=== PATIENT | female | born 1965 | race African-American/Black ===

== ENCOUNTER 2016-02-22 13:45 | Emergency (ER) | payer OTHER ==
[~2016-02-22] VITALS: Ht 170.2 cm; Wt 128.8 kg
[~2016-02-22 13:45] MED LIST: FLUT1DIS3 INH; FURO40TA4 PO; LACT10SO35 PEG; LEVE250T4 PO; LEVO750T31 PO; ONDA4TAB12 SL; OXYC5TAB PO; RIFA550T PO; SPIR100T2 PO; URSO250T3 PO
[2016-02-22] MEDS ORDERED: IV NORMAL SALINE 1000ML BAG 1,000 ML IV SCH (14:04)
[2016-02-22 14:14] LABS: BILIRUBIN,URINE MODERATE (NEG); GLUCOSE,URINE NEGATIVE (NEG); NITRITE,URINE POSITIVE (NEG)
[2016-02-22] MEDS ORDERED: FENTANYL PF 100 MCG/2 ML VIAL. IV PRN (14:15)
[2016-02-22] MEDS ORDERED: KETOROLAC TROMETHAMINE 30 MG/ML SYRINGE. IV ONE (14:15)
[2016-02-22] MEDS ORDERED: ONDANSETRON PF 4 MG/2 ML VIAL. IV ONE (14:15)
[2016-02-22 14:32] LABS: BASO % 0 % (0-3); EOS % 1 % (0-3); HEMATOCRIT 36.9 % (36.0-47.0); HEMOGLOBIN 12.4 g/dL (12.0-15.5); LYMPH # 0.2 x10^3/uL (1.0-4.8); LYMPH % 4 % (24-48); MEAN CORPUSCULAR HEMOGLOBIN 35 pg (25-35); MEAN CORPUSCULAR HGB CONC 34 g/dL (31-37); MEAN CORPUSCULAR VOLUME 106 fL (79-100); MONO % 6 % (0-9); NEUT % 90 % (31-73); PLATELET COUNT 42 x10^3/uL (140-400); RED BLOOD COUNT 3.49 x10^6/uL (3.50-5.40); RED CELL DISTRIBUTION WIDTH 18.5 % (11.5-14.5); WHITE BLOOD COUNT 4.7 x10^3/uL (4.0-11.0)
[2016-02-22 14:34] LABS: CALCIUM 8.2 mg/dL (8.5-10.1); CREATININE 0.8 mg/dL (0.6-1.0); GFR 91.1; POTASSIUM 4.1 mmol/L (3.5-5.1)
[2016-02-22 14:40] LABS: ALBUMIN 2.2 g/dL (3.4-5.0); DIRECT BILIRUBIN 1.1 mg/dL (0.0-0.2); TOTAL BILIRUBIN 4.4 mg/dL (0.2-1.0); TOTAL PROTEIN 6.4 g/dL (6.4-8.2)
[2016-02-22 14:46] LABS: BACTERIA,URINE 0 /HPF (0-FEW); PROTEIN,URINE NEGATIVE (NEG-TRACE); SQUAMOUS EPITHELIAL CELL,UR MOD /LPF; TRICHOMONAS,URINE PRESENT
[2016-02-22] MEDS ORDERED: IOHEXOL 300 MG/ML 100ML VIAL. IV ONE (16:00)
[2016-02-22 16:12] LABS: ANISOCYTOSIS SLIGHT; PLT ESTIMATE DECREASED (ADEQUATE); TARGET CELLS OCC; TEAR DROP CELLS FEW
[2016-02-22] MEDS ORDERED: CONTRAST GIVEN MC PRN (16:15)
--- NOTE | 2016-02-22 16:38 | RAD ---
Indication: Nausea and vomiting. Diarrhea. Epigastric pain. Technique: Axial images and coronal and sagittal reformatted images are provided. 75 mL of intravenous Omnipaque 300 was administered without complication. Comparison is from December 11, 2015. One or more of the following individualized dose reduction techniques were utilized for this examination: 1. Automated exposure control 2. Adjustment of the mA and/or kV according to patient size 3. Use of iterative reconstruction technique Findings: There is minimal atelectasis in the right lung base. There is no pleural effusion. The heart is not enlarged. Liver surface nodularity and coarsened appearance compatible with cirrhosis is redemonstrated. Probable cyst in the liver dome is again noted. Gallbladder is now absent. Pancreas and adrenals are unremarkable. Spleen is mildly enlarged. Aorta is normal caliber. There is a circumaortic left renal vein which is a normal vascular variant. There is minimal atheromatous disease in the distal aorta and in the common iliac arteries. The kidneys are symmetrically perfused. There is no small bowel obstruction or mural thickening. There is mural thickening of the transverse colon and proximal colon with stranding in adjacent ascites. Normal appendix is noted. Mesenteric stranding is again noted. There is no abscess or free air. Subcutaneous edema is noted. Ascites extends down into the pelvis. Bladder is decompressed. Prostate is not enlarged. Calcified phleboliths are noted. There are degenerative changes in the spine. Impression: 1. Mural thickening in the ascending and transverse colon with adjacent stranding and ascites compatible with colitis. No abscess or free air. 2. Findings of cirrhosis.
[2016-02-22 17:41] LABS: BILIRUBIN,URINE MODERATE (NEG); GLUCOSE,URINE NEGATIVE (NEG); NITRITE,URINE POSITIVE (NEG); PROTEIN,URINE 30 mg/dL (NEG-TRACE)
[2016-02-22 18:11] LABS: BACTERIA,URINE 0 /HPF (0-FEW); SQUAMOUS EPITHELIAL CELL,UR FEW /LPF; TRICHOMONAS,URINE PRESENT; WBC,URINE 0 /HPF (0-4)
[2016-02-22] MEDS ORDERED: METRONIDAZOLE 500 MG TABLET. PO ONE (18:30)
--- NOTE | 2016-02-22 19:16 | PHYS DOC ---
Past Medical History Past Medical History: CHF, Hepatitis, Seizure Additional Past Medical Histor: HEP C, NASAL BLEED Past Surgical History: Cholecystectomy, Hysterectomy Alcohol Use: None Drug Use: None Adult General Chief Complaint Chief Complaint: ABDOMINAL PAIN HPI HPI Patient is a 50 year old female who presents with n/v, diarrhea, and abd pain starting 2 hours after eating a slice of pizza from a gas station yesterday. She notes crampy, diffuse abdominal pain, but pain is worst in right upper quadrant. She denies bloody or bilious emesis, and denies bloody diarrhea. She denies recent travel or antibiotics. She denies fever or chills, dysuria, hematuria, vaginal discharge, chest pain, cough, rash. Review of Systems Review of Systems Constitutional: Denies fever or chills [] Eyes: Denies change in visual acuity, redness, or eye pain [] HENT: Denies nasal congestion or sore throat [] Respiratory: Denies cough or shortness of breath [] Cardiovascular: No additional information not addressed in HPI [] GI: Denies bloody stools or bloody emesis [] : Denies dysuria or hematuria [] Musculoskeletal: Denies back pain or joint pain [] Integument: Denies rash or skin lesions [] Neurologic: Denies headache, focal weakness or sensory changes [] Endocrine: Denies polyuria or polydipsia [] Current Medications Current Medications Current Medications Medications (Trade) Dose Ordered Sig/[facility] Start Time Stop Time Status Last Admin Dose Admin Fentanyl Citrate 50 mcg 50 mcg PRN Q15MIN PRN 02/22/16 14:15 02/22/16 19:54 DC 02/22/16 14:20 50 MCG Info (Do NOT chart on this entry -- for MONITORING) 1 each PRN DAILY PRN 02/22/16 16:15 02/22/16 19:54 DC Iohexol (Omnipaque 300 Mg/ml) 75 ml 1X ONCE 02/22/16 16:00 02/22/16 16:01 DC 02/22/16 16:22 75 ML Ketorolac Tromethamine (Toradol) 15 mg 1X ONCE 02/22/16 14:15 02/22/16 14:16 DC 02/22/16 14:21 15 MG Metronidazole (Flagyl) 2,000 mg 1X ONCE 1/1/17 18:30 02/22/16 18:34 DC 02/22/16 18:49 2,000 MG Ondansetron HCl (Zofran) 4 mg 1X ONCE 02/22/16 14:15 02/22/16 14:16 DC 02/22/16 14:20 4 MG Sodium Chloride (Iv Sodium Chloride 0.9% 1000ml Bag) 1,000 ml @ 1,000 mls/hr Q1H 02/22/16 14:04 02/22/16 15:03 DC 02/22/16 14:20 1,000 MLS/HR Allergies Allergies Allergies Coded Allergies Type Severity Reaction Last Updated Verified ceftriaxone Allergy Intermediate 12/20/14 Yes erythromycin base Allergy Intermediate 12/20/14 Yes Physical Exam Physical Exam Constitutional: Well developed, well nourished, no acute distress, non-toxic appearance. [] HENT: Normocephalic, atraumatic, bilateral external ears normal, oropharynx moist, nose normal. [] Eyes: PERRLA, EOMI. [] Neck: Normal range of motion, supple. [] Cardiovascular:Heart rate regular rhythm [] Lungs & Thorax: Bilateral breath sounds clear to auscultation [] Abdomen: Bowel sounds normal, soft, mild diffuse tenderness, no guarding or rebound, no pulsatile masses. [] Genitourinary: Refused by patient Skin: Warm, dry, no erythema, no rash. [] Back: No tenderness, no CVA tenderness. [] Extremities: No tenderness, ROM intact, no edema. [] Neurologic: Alert and oriented X 3, normal motor function, normal sensory function, no focal deficits noted. [] Psychologic: Affect normal, judgement normal, mood normal. [] Current Patient Data Vital Signs Vital Signs Date Time Temp Pulse Resp B/P Pulse Ox O2 Delivery O2 Flow Rate FiO2 02/22/16 19:45 85 21 137/82 97 Room Air 02/22/16 14:00 98.6 98.6 Lab Values Laboratory Tests Test 02/22/16 13:55 02/22/16 14:15 02/22/16 17:30 Urine Collection Type Unknown Unknown Urine Color Sharon Sharon Urine Clarity Clear Clear Urine pH 6.0 6.0 Urine Specific [place] >=1.030 >=1.030 Urine Protein Negativemg/dL (NEG-TRACE) 30mg/dL (NEG-TRACE) Urine Glucose (UA) Negativemg/dL (NEG) Negativemg/dL (NEG) Urine Ketones (Stick) 15mg/dL (NEG) Tracemg/dL (NEG) Urine Blood Moderate (NEG) Moderate (NEG) Urine Nitrite Positive (NEG) Positive (NEG) Urine Bilirubin Moderate (NEG) Moderate (NEG) Urine Urobilinogen Dipstick 1.0mg/dL (0.2 mg/dL) 1.0mg/dL (0.2 mg/dL) Urine Leukocyte Esterase Small (NEG) Small (NEG) Urine RBC 11-20/HPF (0-2) 6-10/HPF (0-2) Urine WBC 1-4/HPF (0-4) 0/HPF (0-4) Urine Squamous Epithelial Cells Mod/LPF Few/LPF Urine Bacteria 0/HPF (0-FEW) 0/HPF (0-FEW) Urine Mucus Marked/LPF Slight/LPF Urine Trichomonas Present Present White Blood Count 4.7x10^3/uL (4.0-11.0) Red Blood Count 3.49x10^6/uL (3.50-5.40) L Hemoglobin 12.4g/dL (12.0-15.5) Hematocrit 36.9% (36.0-47.0) Mean Corpuscular Volume 106fL (79-100) H Mean Corpuscular Hemoglobin 35pg (25-35) Mean Corpuscular Hemoglobin Concent 34g/dL (31-37) Red Cell Distribution Width 18.5% (11.5-14.5) H Platelet Count 42x10^3/uL (140-400) L Neutrophils (%) (Auto) 90% (31-73) H Lymphocytes (%) (Auto) 4% (24-48) L Monocytes (%) (Auto) 6% (0-9) Eosinophils (%) (Auto) 1% (0-3) Basophils (%) (Auto) 0% (0-3) Neutrophils # (Auto) 4.2x10^3uL (1.8-7.7) Lymphocytes # (Auto) 0.2x10^3/uL (1.0-4.8) L Monocytes # (Auto) 0.3x10^3/uL (0.0-1.1) Eosinophils # (Auto) 0.0x10^3/uL (0.0-0.7) Basophils # (Auto) 0.0x10^3/uL (0.0-0.2) Platelet Estimate Decreased (ADEQUATE) Anisocytosis Slight Macrocytosis Mod Target Cells Occ Tear Drop Cells Few Sodium Level 142mmol/L (136-145) Potassium Level 4.1mmol/L (3.5-5.1) Chloride Level 110mmol/L (98-107) H Carbon Dioxide Level 23mmol/L (21-32) Anion Gap 9 (6-14) Blood Urea Nitrogen 18mg/dL (7-20) Creatinine 0.8mg/dL (0.6-1.0) Estimated GFR (Cockcroft-Gault) 91.1 Glucose Level 169mg/dL (70-99) H Calcium Level 8.2mg/dL (8.5-10.1) L Total Bilirubin 4.4mg/dL (0.2-1.0) H Direct Bilirubin 1.1mg/dL (0.0-0.2) H Aspartate Amino Transferase (AST) 46U/L (15-37) H Alanine Aminotransferase (ALT) 29U/L (14-59) Alkaline Phosphatase 118U/L (46-116) H Total Protein 6.4g/dL (6.4-8.2) Albumin 2.2g/dL (3.4-5.0) L Lipase 105U/L (73-393) Urine Hyaline Casts Few/HPF Laboratory Tests 02/22/16 14:15 Laboratory Tests 02/22/16 14:15 Radiology/Procedures Radiology/Procedures CT abdomen and pelvis with IV contrast Impression: 1. Mural thickening in the ascending and transverse colon with adjacent stranding and ascites compatible with colitis. No abscess or free air. 2. Findings of cirrhosis. DICTATED and SIGNED BY: FRANCISCO TRENT MD DATE: 02/22/16 1630 Course & Med Decision Making Course & Med Decision Making Pertinent Labs and Imaging studies reviewed. (See chart for details) She has hyperbilirubinemia, but labs are otherwise largely unremarkable. Her urine has Trichomonas. Imaging as above shows colitis. Her symptoms largely improved. Discussed Trichomonas findings, and she is adamant she has not had sex in 9 years, nor has she shared any or used any sex toys. She adamantly denied risk of STI infection. Thus, urine was tested a second time and continues to be positive for Trichomonas. Discussed case with Chelsey Roberto, recommending metronidazole gel and f/u for resolution testing. Discussed with here that she should be treated with metronidazole gel as she has metronidazole allergy. She states she had itching and swelling associated with taking metronidazole in combination with erythromycin and ceftriaxone. She does not actually know which of these medications caused her allergy. She does not want to try metronidazole gel. She would like to try metronidazole oral dose while in the emergency department. I discussed risks of anaphylaxis and she would like to proceed with trial. She was given metronidazole by mouth and she tolerated this with no symptoms of adverse reaction. Metronidazole was then removed from her allergy profile. She was discharged in stable condition and plans to follow-up with her primary care doctor. She was tolerating oral intake. Return precautions given. She understands and agrees with plan. Dragon Disclaimer Dragon Disclaimer This electronic medical record was generated, in whole or in part, using a voice recognition dictation system. Departure Departure Impression: Primary Impression: Nausea vomiting and diarrhea Additional Impression: Trichomonas vaginitis Disposition: 01 HOME, SELF-CARE Condition: STABLE Referrals: NO PCP (PCP) Patient Instructions: Trichomoniasis-Brief Additional Instructions: Follow-up with your primary care doctor. Return for any concerns. Problem Qualifiers Rosalie BRADEN MD Feb 22, 2016 19:16
[2016-02-22 19:45] VITALS: BP 137/82
== END 2016-02-22 19:48 | disposition home or self-care (01) ==
LOC: ER 13:45
DX: R11.2 Nausea with vomiting, unspecified (principal); R19.7 Diarrhea, unspecified; R10.13 Epigastric pain; A59.01 Trichomonal vulvovaginitis; I50.9 Heart failure, unspecified; Z90.49 Acquired absence of other specified parts of digestive tract; Z90.710 Acquired absence of both cervix and uterus; Z88.1 Allergy status to other antibiotic agents
CPT/HCPCS: 36415; 74177; 80048; 80076; 81001; 83690; 85007; 85027; 87086; 96361; 96374; 96375; 99285; J1885; J2405; J3010; J7030; Q9967

== ENCOUNTER 2016-04-28 16:26 | Emergency (ER) | payer OTHER ==
[~2016-04-28] VITALS: Ht 170.2 cm; Wt 127.0 kg
[~2016-04-28 16:26] MED LIST changes: +HYDR115S2 PO
[2016-04-28 17:58] VITALS: BP 125/80
[2016-04-28] MEDS ORDERED: AMOX500C PO (18:20)
--- NOTE | 2016-04-28 18:20 | PHYS DOC ---
Past Medical History Past Medical History: CHF, Hepatitis, Seizure Additional Past Medical Histor: HEP C, CIRRHOSIS Past Surgical History: Cholecystectomy, Hysterectomy Alcohol Use: None Drug Use: None Adult General Chief Complaint Chief Complaint: SORE THROAT HPI HPI Patient is a 50 year old female presents emergency department that she's had a sore throat for the last month. She states that she is having pain on the left side of her throat area she has tried cough drops throat lozenges without relief. Shunt states that she has not had any fevers. She states the last time she had that she did grow back a bacterial infection. Review of Systems Review of Systems Constitutional: Denies fever or chills [] Eyes: Denies change in visual acuity, redness, or eye pain [] HENT: Denies nasal congestion C/o sore throat [] Respiratory: Denies cough or shortness of breath [] Cardiovascular: No additional information not addressed in HPI [] GI: Denies abdominal pain, nausea, vomiting, bloody stools or diarrhea [] : Denies dysuria or hematuria [] Musculoskeletal: Denies back pain or joint pain [] Integument: Denies rash or skin lesions [] Neurologic: Denies headache, focal weakness or sensory changes [] Allergies Allergies Allergies Coded Allergies Type Severity Reaction Last Updated Verified ceftriaxone Allergy Intermediate 12/20/14 Yes erythromycin base Allergy Intermediate 12/20/14 Yes Physical Exam Physical Exam Constitutional: Well developed, well nourished, no acute distress, non-toxic appearance. [] HENT: Normocephalic, atraumatic, bilateral external ears normal, oropharynx moist, no oral exudates, nose normal. Bilateral tympanic membranes appear to be normal. Throat with erythematous with gait noted. Patient with enlarged lymph nodes on the left. Eyes: PERRLA, EOMI, conjunctiva normal, no discharge. [] Neck: Normal range of motion, no tenderness, supple, no stridor. [] Cardiovascular:Heart rate regular rhythm, no murmur [] Lungs & Thorax: Bilateral breath sounds clear to auscultation [] Skin: Warm, dry, no erythema, no rash. [] Back: No tenderness Extremities: No tenderness, no cyanosis, no clubbing, ROM intact, no edema. [] Neurologic: Alert and oriented X 3, normal motor function, normal sensory function, no focal deficits noted. [] Psychologic: Affect normal, judgement normal, mood normal. [] EKG EKG [] Radiology/Procedures Radiology/Procedures [] Course & Med Decision Making Course & Med Decision Making Pertinent Labs and Imaging studies reviewed. (See chart for details) Rapid strep was negative. Patient will be encouraged to continue to use warm saltwater gargles. We'll place patient on amoxicillin 1 tablet twice day for the next 10 days. Signs and symptoms to return back to the emergency department as been provided. Patient agrees with discharge instructions treatment regimens and follow-up recommendations. Dragon Disclaimer Dragon Disclaimer This electronic medical record was generated, in whole or in part, using a voice recognition dictation system. Departure Departure Impression: Primary Impression: Pharyngitis Disposition: HOME, SELF-CARE Condition: STABLE Referrals: NO PCP (PCP) Patient Instructions: Viral and Bacterial Pharyngitis, [id number] Additional Instructions: Home to rest. Medications as prescribed. Tylenol or ibuprofen for fever chills or generalized body aches and discomfort. Drink plenty of fluids. Cough drops and throat lozenges may also help he may use warm salt water gargles. Follow-up with her primary care physician as needed in the next 3-5 days. Return back to emergency prior signs symptoms that become worse. Scripts Amoxicillin 500 Mg Capsule1 Cap PO BID #20 CAP Prov:ANASTASIA MEYERS NP 04/28/16 ANASTASIA MEYERS NP Apr 28, 2016 18:20
[2016-04-29 06:41] LABS: NEGATIVE OBC STREP NEG; POSITIVE OBC STREP POS
== END 2016-04-28 18:31 | disposition home or self-care (01) ==
LOC: ER 16:26
DX: J02.9 Acute pharyngitis, unspecified (principal); I50.9 Heart failure, unspecified; Z86.19 Personal history of other infectious and parasitic diseases; Z88.1 Allergy status to other antibiotic agents
CPT/HCPCS: 87070; 87880; 99283

== ENCOUNTER 2016-10-19 23:27 | Emergency (ER) | payer OTHER ==
[~2016-10-19] VITALS: Ht 170.2 cm; Wt 127.0 kg
[~2016-10-19 23:27] MED LIST changes: +AMOX500C PO; -RIFA550T PO; +RIFA550T4 PO
--- NOTE | 2016-10-20 00:54 | PHYS DOC ---
Past Medical History Past Medical History: CHF, Hepatitis, Seizure Additional Past Medical Histor: HEP C, CIRRHOSIS Past Surgical History: Cholecystectomy, Hysterectomy, Tonsillectomy Alcohol Use: None Drug Use: None Adult General Chief Complaint Chief Complaint: LOWER EXTREMITY EDEMA HPI HPI Patient is a 50 year old female who presents with F knee pain and swelling. Denies any trauma. She states that is been going on for 3 days. No recent travel. She states she is normally ambulatory and does not require the use of a wheelchair or cane. No chest pain or shortness of air. Review of Systems Review of Systems Constitutional: Denies fever or chills Eyes: Denies change in visual acuity, redness, or eye pain HENT: Denies nasal congestion or sore throat Respiratory: Denies cough or shortness of breath Cardiovascular: No chest pain. GI: Denies abdominal pain, nausea, vomiting, bloody stools or diarrhea : Denies dysuria or hematuria Musculoskeletal: Denies back pain; POS joint pain Integument: Denies rash or skin lesions Neurologic: Denies headache, focal weakness or sensory changes Allergies Allergies Allergies Coded Allergies Type Severity Reaction Last Updated Verified ceftriaxone Allergy Intermediate 12/20/14 Yes erythromycin base Allergy Intermediate 12/20/14 Yes Physical Exam Physical Exam Constitutional: Well developed, well nourished, no acute distress, non-toxic appearance. Obese female with no complaints. HENT: Normocephalic, atraumatic, bilateral external ears normal, oropharynx moist, no oral exudates, nose normal. Eyes: PERRLA, EOMI, conjunctiva normal, no discharge. Neck: Normal range of motion, no tenderness, supple, no stridor. Cardiovascular:Heart rate regular rhythm, no murmur Lungs & Thorax: Bilateral breath sounds clear to auscultation Abdomen: Bowel sounds normal, soft, no tenderness, no masses, no pulsatile masses. Skin: Warm, dry, no erythema, no rash. Back: No tenderness, no CVA tenderness. Extremities: No tenderness, no cyanosis, no clubbing, ROM intact, bilateral non pitting edema. Left knee with swelling and tenderness. NVI distally. Neurologic: Alert and oriented X 3, normal motor function, normal sensory function, no focal deficits noted. Psychologic: Affect normal, judgement normal, mood normal. Current Patient Data Vital Signs Vital Signs Date Time Temp Pulse Resp B/P (MAP) Pulse Ox O2 Delivery O2 Flow Rate FiO2 10/20/16 01:05 97.9 64 16 99 Room Air 97.9 Radiology/Procedures Radiology/Procedures left knee interpreted by myself at 0120 a.m.: degenerative changes; no acute fracture. [facility] [address] [place] [address] IMAGING REPORT Signed PATIENT: MATHEUS NICOLE ACCOUNT: [id number] : 1965 LOCATION: ER AGE: 50 SEX: F EXAM STATUS: REG ER ORD. PHYSICIAN: LORRI ROWE MD REASON: pain and swelling-atraumatic PROCEDURE: VENOUS LOWER EXTREMITY LEFT Left lower extremity venous Doppler ultrasound History: LT LAT THIGH KNEE PAIN SWELLING, NO KNOWN INJURY Comparison: None. Procedure: Color flow Doppler, Doppler spectral analysis, and 2D images are obtained with and without compression in the area of the common femoral vein, superficial femoral vein - femoral vein junction, main femoral vein (superficial femoral vein) and popliteal vein. Veins of the proximal calf are also imaged. Findings: There is normal color flow, augmentation, and compressibility of all visualized vein segments. No evidence of deep venous thrombus is present. There is a complex subcutaneous fluid collection anterior to the lateral knee measuring approximately 10.1 x 5 x 1.6 cm. IMPRESSION: No evidence of left lower extremity deep venous thrombosis. Electronically signed by: Rutsam Anderson MD (10/20/2016 2:26 AM) [facility] DICTATED and SIGNED BY: RUSTAM ANDERSON MD DATE: 10/20/16224 CC: LORRI ROWE MD; NO PCP ~ Course & Med Decision Making Course & Med Decision Making Evaluated patient upon arrival. She has left knee pain-atraumatic. Will check xray and doppler. 0215 AM: Back from doppler; awaiting results. at 0240 am: Doppler is negative. Home w left knee internal derangement. Crutches as needed. Referral to Ortho Fabio Disclaimer Fabio Disclaimer This electronic medical record was generated, in whole or in part, using a voice recognition dictation system. Departure Departure Impression: Primary Impression: Derangement of knee, left Disposition: 01 HOME, SELF-CARE Condition: GOOD Referrals: NO PCP (PCP) Patient Instructions: Combined Knee Ligament Sprain-SportsMed Scripts Naproxen (NAPROSYN) 500 Mg Tablet 500 MG PO BID, #30 TAB Prov: LORRI ROWE MD 10/20/16 LORRI ROWE MD Oct 20, 2016 00:54
--- NOTE | 2016-10-20 02:30 | RAD ---
Left lower extremity venous Doppler ultrasound History: LT LAT THIGH KNEE PAIN SWELLING, NO KNOWN INJURY Comparison: None. Procedure: Color flow Doppler, Doppler spectral analysis, and 2D images are obtained with and without compression in the area of the common femoral vein, superficial femoral vein - femoral vein junction, main femoral vein (superficial femoral vein) and popliteal vein. Veins of the proximal calf are also imaged. Findings: There is normal color flow, augmentation, and compressibility of all visualized vein segments. No evidence of deep venous thrombus is present. There is a complex subcutaneous fluid collection anterior to the lateral knee measuring approximately 10.1 x 5 x 1.6 cm. IMPRESSION: No evidence of left lower extremity deep venous thrombosis. Electronically signed by: Rustam Lama MD (10/20/2016 2:26 AM) [facility]
[2016-10-20] MEDS ORDERED: NAPR500T PO (02:49)
[2016-10-20] MEDS ORDERED: NAPROXEN 500 MG TABLET PO ONE (03:00)
[2016-10-20 03:09] VITALS: BP 126/73
--- NOTE | 2016-10-20 07:19 | RAD ---
Exam performed: 3 views left knee. History: Left knee pain and swelling. Date of service: 10/20/16. Comparison: None available 3 views left knee findings: There is narrowing of the medial tibiofemoral as well as patellofemoral joint with mild osteophytic spurring. There is no acute fracture or dislocation. Diffuse soft tissue swelling is seen. There is a small suprapatellar joint effusion. Impression: Degenerative arthrosis involving the left knee with a small joint effusion.
== END 2016-10-20 03:09 | disposition home or self-care (01) ==
LOC: ER 23:27
DX: M23.92 Unspecified internal derangement of left knee (principal); I50.9 Heart failure, unspecified; Z90.710 Acquired absence of both cervix and uterus; Z90.49 Acquired absence of other specified parts of digestive tract; Z88.1 Allergy status to other antibiotic agents
CPT/HCPCS: 73562; 93971; 99284-25

== ENCOUNTER 2017-04-24 09:51 | Emergency (ER) | payer OTHER ==
[2017-04-24] MEDS: MORPHINE SULFATE 4 MG/ML DISP.SYRIN. IV (10:43)
[2017-04-24] MEDS: ONDANSETRON PF 4 MG/2 ML VIAL. IV (10:43)
[2017-04-24 10:48] LABS: BASO % 1 % (0-3); EOS % 1 % (0-3); HEMATOCRIT 36.8 % (36.0-47.0); HEMOGLOBIN 12.5 g/dL (12.0-15.5); LYMPH # 0.3 x10^3/uL (1.0-4.8); LYMPH % 7 % (24-48); MEAN CORPUSCULAR HEMOGLOBIN 37 pg (25-35); MEAN CORPUSCULAR HGB CONC 34 g/dL (31-37); MEAN CORPUSCULAR VOLUME 108 fL (79-100); MONO # 0.3 x10^3/uL (0.0-1.1); MONO % 9 % (0-9); NEUT # 3.4 x10^3uL (1.8-7.7); NEUT % 83 % (31-73); PLATELET COUNT 36 x10^3/uL (140-400); RED BLOOD COUNT 3.42 x10^6/uL (3.50-5.40); RED CELL DISTRIBUTION WIDTH 18.2 % (11.5-14.5); WHITE BLOOD COUNT 4.1 x10^3/uL (4.0-11.0)
[2017-04-24 10:50] LABS: ANION GAP 4 (6-14); BLOOD UREA NITROGEN 14 mg/dL (7-20); BUN/CREATININE RATIO 18 (6-20); CALCIUM 8.4 mg/dL (8.5-10.1); CARBON DIOXIDE 26 mmol/L (21-32); CHLORIDE 107 mmol/L (98-107); CREATININE 0.8 mg/dL (0.6-1.0); GFR 90.8; GLUCOSE 149 mg/dL (70-99); POTASSIUM 3.9 mmol/L (3.5-5.1); SODIUM 137 mmol/L (136-145)
[2017-04-24 10:51] LABS: ADD MAN DIFF? YES
[2017-04-24 10:57] LABS: ALBUMIN 2.3 g/dL (3.4-5.0); ALBUMIN/GLOBULIN RATIO 0.5 (1.0-1.7); ALK PHOS 179 U/L (46-116); ALT (SGPT) 28 U/L (14-59); AST (SGOT) 46 U/L (15-37); CREATINE KINASE 84 U/L (26-192); LIPASE 119 U/L (73-393); TOTAL BILIRUBIN 3.6 mg/dL (0.2-1.0); TOTAL PROTEIN 6.6 g/dL (6.4-8.2)
[2017-04-24 10:59] LABS: TROPONINI < 0.017 ng/mL (0.000-0.055)
[2017-04-24 11:03] LABS: INFLUENZA A PATIENT NEGATIVE (NEGATIVE); INFLUENZA B PATIENT NEGATIVE (NEGATIVE); OBC FLU VALID
[2017-04-24 11:04] LABS: CKMB MASS < 0.5 ng/mL (0.0-3.6); CREATINE KINASE 84 U/L (26-192)
[2017-04-24 11:04] LABS: NT-PRO BNP 107 pg/mL (0-124)
[2017-04-24 11:18] LABS: TROPONIN BY ISTAT 0.01 ng/ml (<0.08)
[2017-04-24 11:40] LABS: BILIRUBIN,URINE SMALL (NEG); CLARITY,URINE CLOUDY; COLOR,URINE AMBER; GLUCOSE,URINE NEGATIVE (NEG); NITRITE,URINE NEGATIVE (NEG); PH,URINE 6.5; PROTEIN,URINE NEGATIVE (NEG-TRACE)
[2017-04-24 11:47] LABS: INR 1.6 (0.8-1.1); PARTIAL THROMBOPLASTIN TIME 35 SEC (24-38); PROTHROMBIN TIME PATIENT 18.1 SEC (11.7-14.0)
[2017-04-24 11:57] LABS: BACTERIA,URINE FEW /HPF (0-FEW); SQUAMOUS EPITHELIAL CELL,UR MOD /LPF
[2017-04-24 11:58] LABS: HYALINE CASTS, URINE FEW /HPF
[2017-04-24] MEDS: IBUPROFEN 800 MG TABLET. PO (12:44)
[2017-04-24 13:19] LABS: % ATYL 3 % (0-0); % BANDS 3 % (0-9); % EOS 1 % (0-5); % LYMPHS 11 % (24-48); % MONOS 7 % (0-10); % SEGS 75 % (35-66); PLT ESTIMATE DECREASED (ADEQUATE)
[2017-04-24 13:21] LABS: ANISOCYTOSIS SLIGHT
== END 2017-04-24 13:20 | disposition home or self-care (01) ==
LOC: ER 09:51
DX: N39.0 Urinary tract infection, site not specified (principal); J45.909 Unspecified asthma, uncomplicated; I50.9 Heart failure, unspecified; Z90.49 Acquired absence of other specified parts of digestive tract; Z90.710 Acquired absence of both cervix and uterus; Z88.1 Allergy status to other antibiotic agents
CPT/HCPCS: 36415; 71045; 80053; 81001; 82550; 82553; 83690; 83880; 84484; 85007; 85025; 85610; 85730; 87804; 87804-59; 93005; 96374; 96375; 99285-25; J2270; J2405

== ENCOUNTER 2017-05-25 00:14 | Emergency (ER) | payer OTHER ==
[2017-05-25 00:45] LABS: BILIRUBIN,URINE SMALL (NEG); CLARITY,URINE CLEAR; COLOR,URINE AMBER; GLUCOSE,URINE NEGATIVE (NEG); NITRITE,URINE NEGATIVE (NEG); PH,URINE 6.5; PROTEIN,URINE NEGATIVE (NEG-TRACE)
[2017-05-25 00:57] LABS: BACTERIA,URINE MOD /HPF (0-FEW); RBC,URINE OCC /HPF (0-2); SQUAMOUS EPITHELIAL CELL,UR MOD /LPF
[2017-05-25 01:15] LABS: ADD MAN DIFF? NO
[2017-05-25 01:18] LABS: BASO % 1 % (0-3); EOS # 0.1 x10^3/uL (0.0-0.7); EOS % 3 % (0-3); HEMATOCRIT 35.2 % (36.0-47.0); HEMOGLOBIN 11.9 g/dL (12.0-15.5); LYMPH # 0.7 x10^3/uL (1.0-4.8); LYMPH % 18 % (24-48); MEAN CORPUSCULAR HEMOGLOBIN 36 pg (25-35); MEAN CORPUSCULAR HGB CONC 34 g/dL (31-37); MEAN CORPUSCULAR VOLUME 107 fL (79-100); MONO # 0.5 x10^3/uL (0.0-1.1); MONO % 13 % (0-9); NEUT # 2.5 x10^3uL (1.8-7.7); NEUT % 66 % (31-73); PLATELET COUNT 50 x10^3/uL (140-400); RED BLOOD COUNT 3.29 x10^6/uL (3.50-5.40); RED CELL DISTRIBUTION WIDTH 16.2 % (11.5-14.5); WHITE BLOOD COUNT 3.9 x10^3/uL (4.0-11.0)
[2017-05-25 01:30] LABS: ANION GAP 5 (6-14); BLOOD UREA NITROGEN 12 mg/dL (7-20); CALCIUM 8.1 mg/dL (8.5-10.1); CARBON DIOXIDE 26 mmol/L (21-32); CHLORIDE 108 mmol/L (98-107); CREATININE 0.9 mg/dL (0.6-1.0); GFR 79.3; GLUCOSE 111 mg/dL (70-99); SODIUM 139 mmol/L (136-145)
[2017-05-25 01:43] LABS: BARBITURATES NEG (NEG); BENZODIAZEPINES NEG (NEG); CANNABINOIDS NEG (NEG); COCAINE NEG (NEG); METHADONE NEG (NEG); OPIATES NEG (NEG); PHENCYCLIDINE NEG (NEG)
[2017-05-25 01:45] LABS: AMPHETAMINE/METHAMPHETAMINE NEG (NEG); ETHANOL, URINE NEG (NEG)
[2017-05-25] MEDS ORDERED: CONTRAST GIVEN MC (01:45)
[2017-05-25] MEDS: KETOROLAC 15 MG/ML VIAL. IV (01:48)
[2017-05-25] MEDS: MORPHINE SULFATE 4 MG/ML DISP.SYRIN. IV (01:48)
[2017-05-25] MEDS: IOHEXOL 300 MG/ML 100ML VIAL. IV (02:02)
[2017-05-25] MEDS: ONDANSETRON PF 4 MG/2 ML VIAL. IV (03:00)
== END 2017-05-25 03:15 | disposition home or self-care (01) ==
LOC: ER 00:14
DX: M54.5 Low back pain (principal); R10.84 Generalized abdominal pain; I50.9 Heart failure, unspecified; Z90.710 Acquired absence of both cervix and uterus; Z90.49 Acquired absence of other specified parts of digestive tract; Z88.1 Allergy status to other antibiotic agents
CPT/HCPCS: 36415; 74177; 80048; 80307; 81001; 85025; 96374; 96375; 99285-25; J1885; J2270; J2405; Q9967

== ENCOUNTER 2017-08-16 23:31 | Emergency (ER) | payer OTHER ==
[2017-08-17] MEDS ORDERED: fentaNYL PF VIAL 100 MCG/2 ML VIAL IM
[2017-08-17] MEDS ORDERED: KETOROLAC 60 MG/2 ML INJ. IM
[2017-08-17] MEDS: KETOROLAC 30 MG/ML INJ. IV (01:06)
[2017-08-17] MEDS: fentaNYL PF VIAL 100 MCG/2 ML VIAL IV (01:08)
== END 2017-08-17 01:48 | disposition home or self-care (01) ==
LOC: ER 08-17 01:48
DX: M25.562 Pain in left knee (principal); Z88.1 Allergy status to other antibiotic agents
CPT/HCPCS: 73562; 93971; 96374; 96375; 99284-25; J1885; J3010

== ENCOUNTER 2017-08-21 17:52 | Emergency (ER) | payer OTHER ==
[2017-08-21] MEDS: HYDROcodone/APAP 5/325MG 1 TAB TABLET PO (18:45)
== END 2017-08-21 18:49 | disposition home or self-care (01) ==
LOC: ER 17:52
DX: G89.29 Other chronic pain (principal); M25.562 Pain in left knee; Z88.1 Allergy status to other antibiotic agents; Z88.8 Allergy status to other drugs, medicaments and biological substances
CPT/HCPCS: 99283

== ENCOUNTER 2017-08-24 07:25 | Inpatient (IN) | payer OTHER ==
[2017-08-24] MEDS: oxyCODONE/APAP 10/325 1 TAB TABLET PO (08:05)
[2017-08-24 08:29] LABS: ANION GAP 7 (6-14); BASO % 0 % (0-3); BLOOD UREA NITROGEN 63 mg/dL (7-20); BUN/CREATININE RATIO 25 (6-20); CALCIUM 8.7 mg/dL (8.5-10.1); CARBON DIOXIDE 26 mmol/L (21-32); CHLORIDE 99 mmol/L (98-107); CREATININE 2.5 mg/dL (0.6-1.0); EOS # 0.2 x10^3/uL (0.0-0.7); EOS % 1 % (0-3); GFR 24.4; GLUCOSE 134 mg/dL (70-99); HEMATOCRIT 36.2 % (36.0-47.0); HEMOGLOBIN 12.4 g/dL (12.0-15.5); LYMPH # 0.5 x10^3/uL (1.0-4.8); LYMPH % 4 % (24-48); MEAN CORPUSCULAR HEMOGLOBIN 36 pg (25-35); MEAN CORPUSCULAR HGB CONC 34 g/dL (31-37); MEAN CORPUSCULAR VOLUME 106 fL (79-100); MONO # 2.3 x10^3/uL (0.0-1.1); MONO % 15 % (0-9); NEUT # 12.6 x10^3uL (1.8-7.7); NEUT % 81 % (31-73); PLATELET COUNT 54 x10^3/uL (140-400); POTASSIUM 4.7 mmol/L (3.5-5.1); RED BLOOD COUNT 3.42 x10^6/uL (3.50-5.40); RED CELL DISTRIBUTION WIDTH 17.7 % (11.5-14.5); SODIUM 132 mmol/L (136-145); WHITE BLOOD COUNT 15.7 x10^3/uL (4.0-11.0)
[2017-08-24 08:35] LABS: ALBUMIN 2.3 g/dL (3.4-5.0); ALBUMIN/GLOBULIN RATIO 0.5 (1.0-1.7); ALK PHOS 132 U/L (46-116); ALT (SGPT) 38 U/L (14-59); AST (SGOT) 77 U/L (15-37); C-REACTIVE PROTEIN 120.2 mg/L (0-3.3); TOTAL BILIRUBIN 3.3 mg/dL (0.2-1.0); TOTAL PROTEIN 6.8 g/dL (6.4-8.2); URIC ACID 9.9 mg/dL (2.6-6.0)
[2017-08-24 08:45] LABS: ADD MAN DIFF? YES
[2017-08-24] MEDS: IV NORMAL SALINE 1000ML BAG 1,000 ML IV ×3 (08:58→18:12)
[2017-08-24] MEDS ORDERED: ONDANSETRON PF 4 MG/2 ML VIAL. IV (10:00)
[2017-08-24] MEDS: MORPHINE SULFATE 2 MG/ML DISP.SYRIN. IV ×3 (10:15→21:01)
[2017-08-24 11:50] LABS: % BANDS 8 % (0-9); % EOS 1 % (0-5); % LYMPHS 3 % (24-48); % MONOS 9 % (0-10); % SEGS 79 % (35-66)
[2017-08-24 11:51] LABS: PLT ESTIMATE DECREASED (ADEQUATE)
[2017-08-24] MEDS ORDERED: traMADol 50 MG TABLET PO (14:30)
[2017-08-24] MEDS ORDERED: hydrALAZINE 20 MG/ML VIAL. IVP (14:30)
[2017-08-24] MEDS ORDERED: ACETAMINOPHEN 325 MG TABLET. PO (14:30)
[2017-08-24] MEDS: levETIRAcetam 250 MG TABLET PO ×2 (15:00→21:00)
[2017-08-24] MEDS: LACTULOSE 20 GM/30 ML SOLUTION. PEG ×2 (16:17→21:00)
[2017-08-24] MEDS: predniSONE 20 MG TABLET PO (16:18)
[2017-08-24] MEDS: rifAXIMin 550 MG TABLET PO ×2 (16:18→21:02)
[2017-08-24] MEDS: URSODIOL 300 MG CAPSULE. PO (16:19)
[2017-08-24] MEDS: oxyCODONE IR 5 MG TABLET PO ×2 (16:19→21:02)
[2017-08-24] MEDS: ALBUTEROL SULFATE 2.5 MG/3 ML NEBU. NEB ×2 (17:32→19:46)
[2017-08-24] MEDS: BUDESONIDE 0.5 MG/2 ML NEBU. NEB (19:46)
[2017-08-24] MEDS: ONDANSETRON PF 4 MG/2 ML VIAL. IV (21:07)
[2017-08-25] MEDS: IV NORMAL SALINE 1000ML BAG 1,000 ML IV (03:45)
[2017-08-25] MEDS: MORPHINE SULFATE 2 MG/ML DISP.SYRIN. IV ×4 (03:49→17:33)
[2017-08-25 08:07] LABS: ADD MAN DIFF? NO
[2017-08-25 08:10] LABS: BASO % 0 % (0-3); EOS % 0 % (0-3); HEMATOCRIT 36.2 % (36.0-47.0); HEMOGLOBIN 12.3 g/dL (12.0-15.5); LYMPH # 0.2 x10^3/uL (1.0-4.8); LYMPH % 2 % (24-48); MEAN CORPUSCULAR HEMOGLOBIN 37 pg (25-35); MEAN CORPUSCULAR HGB CONC 34 g/dL (31-37); MEAN CORPUSCULAR VOLUME 108 fL (79-100); MONO # 0.9 x10^3/uL (0.0-1.1); MONO % 7 % (0-9); NEUT # 12.4 x10^3uL (1.8-7.7); NEUT % 91 % (31-73); PLATELET COUNT 50 x10^3/uL (140-400); RED BLOOD COUNT 3.36 x10^6/uL (3.50-5.40); RED CELL DISTRIBUTION WIDTH 18.2 % (11.5-14.5); WHITE BLOOD COUNT 13.6 x10^3/uL (4.0-11.0)
[2017-08-25] MEDS: rifAXIMin 550 MG TABLET PO ×2 (08:14→21:41)
[2017-08-25] MEDS: oxyCODONE IR 5 MG TABLET PO ×2 (08:15→21:42)
[2017-08-25] MEDS: URSODIOL 300 MG CAPSULE. PO (08:16)
[2017-08-25] MEDS: predniSONE 20 MG TABLET PO (08:17)
[2017-08-25] MEDS: LACTULOSE 20 GM/30 ML SOLUTION. PEG ×3 (08:22→21:42)
[2017-08-25] MEDS: levETIRAcetam 250 MG TABLET PO ×2 (08:23→21:00)
[2017-08-25 08:36] LABS: ANION GAP 6 (6-14); BLOOD UREA NITROGEN 54 mg/dL (7-20); CALCIUM 8.3 mg/dL (8.5-10.1); CARBON DIOXIDE 25 mmol/L (21-32); CHLORIDE 100 mmol/L (98-107); GFR 31.5; GLUCOSE 241 mg/dL (70-99); POTASSIUM 5.1 mmol/L (3.5-5.1); SODIUM 131 mmol/L (136-145)
[2017-08-25] MEDS ORDERED: SPIRONOLACTONE PO (09:00)
[2017-08-25] MEDS: DICLOFENAC SODIUM 1% TOPICAL GEL 100GM TUBE. TP ×2 (10:19→21:49)
[2017-08-25] MEDS: ALBUTEROL SULFATE 2.5 MG/3 ML NEBU. NEB ×3 (11:35→19:43)
[2017-08-25] MEDS: ONDANSETRON PF 4 MG/2 ML VIAL. IV ×2 (13:58→21:56)
[2017-08-25] MEDS: BUDESONIDE 0.5 MG/2 ML NEBU. NEB (19:43)
[2017-08-26] MEDS: MORPHINE SULFATE 2 MG/ML DISP.SYRIN. IV ×4 (01:40→19:46)
[2017-08-26] MEDS: ONDANSETRON PF 4 MG/2 ML VIAL. IV ×2 (05:07→21:06)
[2017-08-26] MEDS: BUDESONIDE 0.5 MG/2 ML NEBU. NEB ×2 (08:00→20:26)
[2017-08-26] MEDS: ALBUTEROL SULFATE 2.5 MG/3 ML NEBU. NEB ×4 (08:00→20:26)
[2017-08-26] MEDS: LACTULOSE 20 GM/30 ML SOLUTION. PEG ×2 (09:00→14:25)
[2017-08-26] MEDS: levETIRAcetam 250 MG TABLET PO ×2 (09:00→21:00)
[2017-08-26] MEDS: URSODIOL 300 MG CAPSULE. PO (09:18)
[2017-08-26] MEDS: oxyCODONE IR 5 MG TABLET PO ×2 (09:18→21:01)
[2017-08-26] MEDS: predniSONE 20 MG TABLET PO (09:19)
[2017-08-26] MEDS: rifAXIMin 550 MG TABLET PO ×2 (09:19→21:01)
[2017-08-26] MEDS: DICLOFENAC SODIUM 1% TOPICAL GEL 100GM TUBE. TP ×2 (09:21→21:01)
[2017-08-26 12:22] LABS: HEMATOCRIT 35.2 % (36.0-47.0); MEAN CORPUSCULAR HEMOGLOBIN 36 pg (25-35); MEAN CORPUSCULAR HGB CONC 34 g/dL (31-37); MEAN CORPUSCULAR VOLUME 107 fL (79-100); PLATELET COUNT 65 x10^3/uL (140-400); RED CELL DISTRIBUTION WIDTH 18.2 % (11.5-14.5); WHITE BLOOD COUNT 17.7 x10^3/uL (4.0-11.0)
[2017-08-26 12:39] LABS: ANION GAP 5 (6-14); BLOOD UREA NITROGEN 41 mg/dL (7-20); BUN/CREATININE RATIO 27 (6-20); CALCIUM 8.5 mg/dL (8.5-10.1); CARBON DIOXIDE 27 mmol/L (21-32); CHLORIDE 100 mmol/L (98-107); CREATININE 1.5 mg/dL (0.6-1.0); GLUCOSE 192 mg/dL (70-99); POTASSIUM 5.1 mmol/L (3.5-5.1); SODIUM 132 mmol/L (136-145)
[2017-08-26 12:54] LABS: ALBUMIN 2.3 g/dL (3.4-5.0); ALBUMIN/GLOBULIN RATIO 0.5 (1.0-1.7); ALK PHOS 160 U/L (46-116); ALT (SGPT) 40 U/L (14-59); AST (SGOT) 49 U/L (15-37); TOTAL BILIRUBIN 2.8 mg/dL (0.2-1.0); TOTAL PROTEIN 7.1 g/dL (6.4-8.2)
[2017-08-26] MEDS: IV NORMAL SALINE 1000ML BAG 1,000 ML IV (14:25)
[2017-08-26] MEDS: DOCUSATE SODIUM 100 MG CAPSULE. PO (22:47)
[2017-08-27] MEDS: IV NORMAL SALINE 1000ML BAG 1,000 ML IV ×2 (01:53→19:34)
[2017-08-27] MEDS: MORPHINE SULFATE 2 MG/ML DISP.SYRIN. IV ×6 (01:54→23:03)
[2017-08-27] MEDS: ALBUTEROL SULFATE 2.5 MG/3 ML NEBU. NEB ×4 (07:21→19:25)
[2017-08-27] MEDS: BUDESONIDE 0.5 MG/2 ML NEBU. NEB ×2 (07:23→19:28)
[2017-08-27] MEDS: LACTULOSE 20 GM/30 ML SOLUTION. PO (07:48)
[2017-08-27] MEDS: URSODIOL 300 MG CAPSULE. PO (07:48)
[2017-08-27] MEDS: predniSONE 20 MG TABLET PO (07:48)
[2017-08-27] MEDS: DICLOFENAC SODIUM 1% TOPICAL GEL 100GM TUBE. TP ×2 (07:48→20:01)
[2017-08-27] MEDS: levETIRAcetam 250 MG TABLET PO ×2 (07:49→20:02)
[2017-08-27] MEDS: rifAXIMin 550 MG TABLET PO ×2 (07:49→20:01)
[2017-08-27] MEDS: oxyCODONE IR 5 MG TABLET PO ×2 (07:49→20:02)
[2017-08-27] MEDS: ONDANSETRON PF 4 MG/2 ML VIAL. IV ×2 (08:45→19:37)
[2017-08-27] MEDS: CALCIUM CARBONATE 500 MG TAB.CHEW PO ×2 (19:32→22:56)
[2017-08-28] MEDS: IV NORMAL SALINE 1000ML BAG 1,000 ML IV ×2 (03:30→16:55)
[2017-08-28] MEDS: ONDANSETRON PF 4 MG/2 ML VIAL. IV ×2 (03:49→09:02)
[2017-08-28] MEDS: MORPHINE SULFATE 2 MG/ML DISP.SYRIN. IV ×3 (03:50→16:49)
[2017-08-28] MEDS: ALBUTEROL SULFATE 2.5 MG/3 ML NEBU. NEB (07:31)
[2017-08-28] MEDS: LACTULOSE 20 GM/30 ML SOLUTION. PO (09:00)
[2017-08-28] MEDS: levETIRAcetam 250 MG TABLET PO ×2 (09:00→20:08)
[2017-08-28] MEDS: predniSONE 20 MG TABLET PO (09:01)
[2017-08-28] MEDS: rifAXIMin 550 MG TABLET PO ×2 (09:01→20:04)
[2017-08-28] MEDS: DOCUSATE SODIUM 100 MG CAPSULE. PO (09:01)
[2017-08-28] MEDS: URSODIOL 300 MG CAPSULE. PO (09:01)
[2017-08-28] MEDS: oxyCODONE IR 5 MG TABLET PO ×2 (09:03→20:04)
[2017-08-28] MEDS: DICLOFENAC SODIUM 1% TOPICAL GEL 100GM TUBE. TP ×2 (09:04→20:05)
[2017-08-28 16:44] LABS: HEMATOCRIT 33.9 % (36.0-47.0); HEMOGLOBIN 11.3 g/dL (12.0-15.5); MEAN CORPUSCULAR HEMOGLOBIN 36 pg (25-35); MEAN CORPUSCULAR HGB CONC 33 g/dL (31-37); MEAN CORPUSCULAR VOLUME 108 fL (79-100); PLATELET COUNT 58 x10^3/uL (140-400); RED BLOOD COUNT 3.15 x10^6/uL (3.50-5.40); RED CELL DISTRIBUTION WIDTH 18.5 % (11.5-14.5); WHITE BLOOD COUNT 18.8 x10^3/uL (4.0-11.0)
[2017-08-28 17:12] LABS: ALBUMIN 2.2 g/dL (3.4-5.0); ALBUMIN/GLOBULIN RATIO 0.5 (1.0-1.7); ALK PHOS 165 U/L (46-116); ALT (SGPT) 39 U/L (14-59); ANION GAP 3 (6-14); AST (SGOT) 37 U/L (15-37); BLOOD UREA NITROGEN 29 mg/dL (7-20); BUN/CREATININE RATIO 19 (6-20); CALCIUM 8.5 mg/dL (8.5-10.1); CARBON DIOXIDE 26 mmol/L (21-32); CHLORIDE 100 mmol/L (98-107); CREATININE 1.5 mg/dL (0.6-1.0); GLUCOSE 329 mg/dL (70-99); SODIUM 129 mmol/L (136-145); TOTAL PROTEIN 6.8 g/dL (6.4-8.2)
[2017-08-28 17:19] LABS: POTASSIUM 6.1 mmol/L (3.5-5.1)
[2017-08-28] MEDS ORDERED: ALBUTEROL SULFATE 2.5 MG/3 ML NEBU. NEB (20:00)
[2017-08-28] MEDS: SODIUM POLYSTYRENE SULFONATE 15 GM/60 ML ORAL.SUSP. PO (20:03)
[2017-08-28] MEDS: CALCIUM CARBONATE 500 MG TAB.CHEW PO (20:32)
[2017-08-28 22:46] LABS: ALBUMIN 1.9 g/dL (3.4-5.0); ALBUMIN/GLOBULIN RATIO 0.4 (1.0-1.7); ALK PHOS 160 U/L (46-116); ALT (SGPT) 36 U/L (14-59); ANION GAP 2 (6-14); AST (SGOT) 35 U/L (15-37); BLOOD UREA NITROGEN 27 mg/dL (7-20); BUN/CREATININE RATIO 18 (6-20); CALCIUM 8.3 mg/dL (8.5-10.1); CARBON DIOXIDE 26 mmol/L (21-32); CHLORIDE 101 mmol/L (98-107); CREATININE 1.5 mg/dL (0.6-1.0); GLUCOSE 358 mg/dL (70-99); POTASSIUM 5.9 mmol/L (3.5-5.1); SODIUM 129 mmol/L (136-145); TOTAL BILIRUBIN 3.5 mg/dL (0.2-1.0); TOTAL PROTEIN 6.2 g/dL (6.4-8.2)
[2017-08-29] MEDS: ONDANSETRON PF 4 MG/2 ML VIAL. IV ×3 (00:01→20:29)
[2017-08-29] MEDS: MORPHINE SULFATE 2 MG/ML DISP.SYRIN. IV ×5 (00:01→20:29)
[2017-08-29] MEDS: IV NORMAL SALINE 1000ML BAG 1,000 ML IV ×3 (00:04→16:00)
[2017-08-29] MEDS: CALCIUM CARBONATE 500 MG TAB.CHEW PO ×2 (01:02→09:02)
[2017-08-29] MEDS: rifAXIMin 550 MG TABLET PO ×2 (08:36→20:19)
[2017-08-29] MEDS: URSODIOL 300 MG CAPSULE. PO (08:36)
[2017-08-29] MEDS: oxyCODONE IR 5 MG TABLET PO (08:37)
[2017-08-29] MEDS: predniSONE 20 MG TABLET PO (08:37)
[2017-08-29] MEDS: LACTULOSE 20 GM/30 ML SOLUTION. PO (08:41)
[2017-08-29] MEDS: levETIRAcetam 250 MG TABLET PO ×2 (08:41→20:24)
[2017-08-29] MEDS: DICLOFENAC SODIUM 1% TOPICAL GEL 100GM TUBE. TP (09:00)
[2017-08-29] MEDS ORDERED: methylPREDNISolone ACETATE 40 MG/ML VIAL. IM (09:15)
[2017-08-29] MEDS ORDERED: BUPIVACAINE MPF 0.25% 10 ML VIAL. IJ (09:15)
[2017-08-29] MEDS: ALLOPURINOL 300 MG TABLET. PO (12:01)
[2017-08-29] MEDS: SODIUM POLYSTYRENE SULFONATE 15 GM/60 ML ORAL.SUSP. PO (12:01)
[2017-08-29] MEDS: MINERAL OIL 133 ML ENEMA. PR (12:01)
[2017-08-29] MEDS: FUROSEMIDE 100 MG/10 ML VIAL. IVP ×2 (12:04→16:00)
[2017-08-29 12:59] LABS: BILIRUBIN,URINE NEGATIVE (NEG); CLARITY,URINE CLEAR; COLOR,URINE YELLOW; GLUCOSE,URINE NEGATIVE (NEG); NITRITE,URINE NEGATIVE (NEG); PROTEIN,URINE NEGATIVE (NEG-TRACE)
[2017-08-29 13:23] LABS: BACTERIA,URINE 0 /HPF (0-FEW); HYALINE CASTS, URINE MODERATE /HPF; RBC,URINE TNTC /HPF (0-2); SQUAMOUS EPITHELIAL CELL,UR FEW /LPF
[2017-08-29] MEDS: BISACODYL 10 MG SUPP.RECT. PR (20:23)
[2017-08-30] MEDS: oxyCODONE IR 5 MG TABLET PO ×3 (03:23→20:42)
[2017-08-30] MEDS: IV NORMAL SALINE 1000ML BAG 1,000 ML IV ×2 (04:35→20:46)
[2017-08-30] MEDS: FUROSEMIDE 100 MG/10 ML VIAL. IVP (09:00)
[2017-08-30] MEDS: URSODIOL 300 MG CAPSULE. PO (09:00)
[2017-08-30] MEDS: levETIRAcetam 250 MG TABLET PO ×2 (09:00→21:00)
[2017-08-30] MEDS: LACTULOSE 20 GM/30 ML SOLUTION. PO (09:00)
[2017-08-30] MEDS: ALLOPURINOL 300 MG TABLET. PO (09:15)
[2017-08-30] MEDS: rifAXIMin 550 MG TABLET PO ×2 (09:15→20:42)
[2017-08-30] MEDS: predniSONE 20 MG TABLET PO (09:16)
[2017-08-30 09:35] LABS: ALBUMIN 2.1 g/dL (3.4-5.0); ANION GAP 6 (6-14); BLOOD UREA NITROGEN 28 mg/dL (7-20); CALCIUM 8.6 mg/dL (8.5-10.1); CARBON DIOXIDE 27 mmol/L (21-32); CHLORIDE 100 mmol/L (98-107); CREATININE 1.4 mg/dL (0.6-1.0); GFR 47.6; GLUCOSE 216 mg/dL (70-99); POTASSIUM 4.2 mmol/L (3.5-5.1); SODIUM 133 mmol/L (136-145)
[2017-08-30] MEDS: DICLOFENAC SODIUM 1% TOPICAL GEL 100GM TUBE. TP (16:31)
[2017-08-30] MEDS: ONDANSETRON PF 4 MG/2 ML VIAL. IV (16:36)
[2017-08-30] MEDS: MORPHINE SULFATE 2 MG/ML DISP.SYRIN. IV (16:37)
[2017-08-30] MEDS ORDERED: PHENYLEPHRINE SUPP.RECT. PR (21:45)
[2017-08-31 00:07] LABS: LACTIC ACID 2.6 mmol/L (0.4-2.0)
[2017-08-31] MEDS: MORPHINE SULFATE 2 MG/ML DISP.SYRIN. IV (00:13)
[2017-08-31] MEDS: DICLOFENAC SODIUM 1% TOPICAL GEL 100GM TUBE. TP ×2 (02:03→10:00)
[2017-08-31 04:03] LABS: LACTIC ACID 2.2 mmol/L (0.4-2.0)
[2017-08-31 04:34] LABS: ALBUMIN 1.7 g/dL (3.4-5.0); ANION GAP 5 (6-14); BLOOD UREA NITROGEN 31 mg/dL (7-20); CALCIUM 7.8 mg/dL (8.5-10.1); CARBON DIOXIDE 26 mmol/L (21-32); CHLORIDE 99 mmol/L (98-107); CREATININE 1.4 mg/dL (0.6-1.0); GFR 47.6; GLUCOSE 399 mg/dL (70-99); PHOSPHORUS 3.2 mg/dL (2.6-4.7); POTASSIUM 4.4 mmol/L (3.5-5.1); SODIUM 130 mmol/L (136-145); URIC ACID 4.8 mg/dL (2.6-6.0)
[2017-08-31] MEDS: levETIRAcetam 250 MG TABLET PO (09:00)
[2017-08-31] MEDS: LACTULOSE 20 GM/30 ML SOLUTION. PO (09:00)
[2017-08-31] MEDS: rifAXIMin 550 MG TABLET PO (09:58)
[2017-08-31] MEDS: URSODIOL 300 MG CAPSULE. PO (09:59)
[2017-08-31] MEDS: ALLOPURINOL 300 MG TABLET. PO (09:59)
[2017-08-31] MEDS: oxyCODONE IR 5 MG TABLET PO (10:00)
== END 2017-08-31 14:40 | disposition home health service (06) | DRG 682 ==
LOC: 5 SOUTH 08-27 14:50 → ER 07:25 → ED HOLD 08:40 → 5 SOUTH 10:36
DX: N17.0 Acute kidney failure with tubular necrosis (principal); E43 Unspecified severe protein-calorie malnutrition; Z68.41 Body mass index [BMI] 40.0-44.9, adult; E87.1 Hypo-osmolality and hyponatremia; M10.9 Gout, unspecified; D69.6 Thrombocytopenia, unspecified; D72.829 Elevated white blood cell count, unspecified; E66.01 Morbid (severe) obesity due to excess calories; E86.0 Dehydration; E87.5 Hyperkalemia; E87.6 Hypokalemia; G89.29 Other chronic pain; I25.10 Atherosclerotic heart disease of native coronary artery without angina pectoris; I50.9 Heart failure, unspecified; D63.1 Anemia in chronic kidney disease; I89.0 Lymphedema, not elsewhere classified; K21.9 Gastro-esophageal reflux disease without esophagitis; K59.00 Constipation, unspecified; K74.60 Unspecified cirrhosis of liver; M17.12 Unilateral primary osteoarthritis, left knee; N18.9 Chronic kidney disease, unspecified; T50.2X5A Adverse effect of carbonic-anhydrase inhibitors, benzothiadiazides and other diuretics, initial encounter; Z79.899 Other long term (current) drug therapy; Z82.49 Family history of ischemic heart disease and other diseases of the circulatory system; Z90.49 Acquired absence of other specified parts of digestive tract; Z90.710 Acquired absence of both cervix and uterus; Z88.8 Allergy status to other drugs, medicaments and biological substances
CPT/HCPCS: 36415; 73562; 80048; 80053; 80069; 81001; 83605; 84550; 85007; 85025; 85027; 86140; 87040; 94640; 94760; 96360; 96361; 97116-GP; 97161-GP; 97166-GO; 97168-GO; 97530-GP; 99285; 99285-25; J1956; J2270; J2405; J7030; J7512; J7613; J7626